=== PATIENT | female | born 1970 | race Caucasian/White ===

== ENCOUNTER 2017-08-26 13:59 | Emergency (ER) | payer MEDICAID ==
[2017-08-26 15:15] LABS: URINE BLOOD (Dip) POC Negative (NEGATIVE); URINE GLUCOSE (Dip) POC Negative (NEGATIVE); URINE KETONES (Dip) POC Negative (NEGATIVE); URINE LEUKOCYTE EST (Dip) POC 1+ (NEGATIVE); URINE NITRITE (Dip) POC Negative (NEGATIVE); URINE TOTAL PROTEIN POC Negative (NEGATIVE)
[2017-08-26] MEDS: ACETAMINOPHEN 500 MG TAB PO (15:20)
[2017-08-26] MEDS: CEPHALEXIN 500 MG CAP PO (15:20)
[2017-08-26] MEDS: PHENAZOPYRIDINE 100 MG TAB PO (15:20)
== END 2017-08-26 16:24 | disposition home or self-care (01) ==
LOC: FTE 13:59
DX: N30.00 Acute cystitis without hematuria (principal)
CPT/HCPCS: 81003; 99283